=== PATIENT | female | born 2000 | race Caucasian/White ===

== ENCOUNTER 2024-05-16 10:48 | Emergency (ER) | payer OTHER ==
[~2024-05-16] VITALS: Ht 157.5 cm; Wt 64.4 kg
[2024-05-16] MEDS: KETOROLAC 30 MG/ML 1ML VIAL IM ONE (12:25)
[2024-05-16] MEDS: ACETAMINOPHEN 500 MG TAB PO ONE (12:25)
[2024-05-16] MEDS: LIDOCAINE 5% (LIDODERM) PATCH TD ONE (13:00)
[2024-05-16] MEDS: methylPREDNISolone 125MG 2ML VIAL IM ONE (13:13)
[2024-05-16] MEDS ORDERED: METH-1165 PO (13:46)
[2024-05-16 14:21] VITALS: BP 119/68; TEMP 97.8; O2SAT 100
== END 2024-05-16 14:23 | disposition home or self-care (01) ==
LOC: M ED 10:48
DX: M54.16 Radiculopathy, lumbar region (principal)
CPT/HCPCS: 99283; J1885; J2919

== ENCOUNTER 2024-10-26 23:21 | Emergency (ER) | payer OTHER ==
[~2024-10-26] VITALS: Ht 154.9 cm; Wt 61.4 kg
[~2024-10-26 23:21] MED LIST: METH-1165 PO
[2024-10-26] MEDS ORDERED: TRAZ-252 PO (23:36)
[2024-10-27] MEDS: methylPREDNISolone 125MG 2ML VIAL IV ONE (00:48)
[2024-10-27 01:07] LABS: BASO % 0.3 % (0.0-1.0); EOS # 0.3 10^3/uL (0.0-0.5); EOS % 2.9 % (0.0-3.0); HEMATOCRIT 33.2 % (36.0-47.0); HEMOGLOBIN 11.5 g/dl (12.0-15.5); LYMPH # 1.8 10^3/uL (1.5-5.0); LYMPH % 19.7 % (24.0-44.0); MEAN CORPUSCULAR HGB CONC 34.6 g/dl (32.0-36.5); MEAN CORPUSCULAR VOLUME 89.5 fl (80.0-96.0); MONO # 0.5 10^3/uL (0.0-0.8); MONO % 5.8 % (2.0-8.0); NEUTROPHILS # 6.4 10^3/uL (1.5-8.5); NEUTROPHILS % 70.9 % (36.0-66.0); PLATELET COUNT, AUTOMATED 203 10^3/uL (150-450); RED BLOOD COUNT 3.71 10^6/uL (4.00-5.40)
[2024-10-27 01:21] LABS: BLOOD UREA NITROGEN 13 MG/DL (9-23); CALCIUM LEVEL 8.4 MG/DL (8.5-10.1); CARBON DIOXIDE LEVEL 25 MMOL/L (20-31); CHLORIDE LEVEL 105 MMOL/L (98-107); GLOMERULAR FILTRATION RATE > 90.0 (>60); GLUCOSE, FASTING 85 MG/DL (60-100); POTASSIUM SERUM 3.8 MMOL/L (3.5-5.1); SODIUM LEVEL 139 MMOL/L (136-145)
[2024-10-27 02:01] LABS: HCG, SERUM QUALITATIVE NEGATIVE (NEGATIVE)
[2024-10-27] MEDS: diazePAM 10MG/2ML SYRINGE IV ONE (06:20)
[2024-10-27 07:00] VITALS: TEMP 97.8
[2024-10-27 08:00] VITALS: BP 101/58; O2SAT 99
[2024-10-27] MEDS ORDERED: MEDR4PAK PO (08:50)
[2024-10-27] MEDS ORDERED: NAPR-837 PO (08:52)
== END 2024-10-27 09:05 | disposition home or self-care (01) ==
LOC: M ED 23:21
DX: M51.26 Other intervertebral disc displacement, lumbar region (principal); M51.27 Other intervertebral disc displacement, lumbosacral region; Z79.899 Other long term (current) drug therapy; Z79.1 Long term (current) use of non-steroidal anti-inflammatories (NSAID)
CPT/HCPCS: 72131; 72192; 80048; 84703; 85025; 96374; 96375; 99284; J2919; J3360

== ENCOUNTER 2025-04-15 19:09 | Emergency (ER) | payer OTHER ==
[~2025-04-15] VITALS: Ht 154.9 cm; Wt 62.2 kg
[~2025-04-15 19:09] MED LIST changes: +MEDR4PAK PO; +NAPR-837 PO; +TRAZ-252 PO
[2025-04-15 19:52] LABS: BASO # 0.0 10^3/uL (0.0-0.2); BASO % 0.6 % (0.0-1.0); EOS # 0.3 10^3/uL (0.0-0.5); EOS % 3.6 % (0.0-3.0); LYMPH # 2.0 10^3/uL (1.5-5.0); LYMPH % 28.5 % (24.0-44.0); MONO # 0.5 10^3/uL (0.0-0.8); MONO % 7.2 % (2.0-8.0); NEUTROPHILS # 4.2 10^3/uL (1.5-8.5); NEUTROPHILS % 60.0 % (36.0-66.0); PLATELET COUNT, AUTOMATED 210 10^3/uL (150-450)
[2025-04-15 20:15] LABS: HCG, SERUM QUALITATIVE NEGATIVE (NEGATIVE)
[2025-04-15 20:18] LABS: ALT/SGPT 15 U/L (7.0-40); AST/SGOT 19 U/L (<34); CALCIUM LEVEL 8.6 MG/DL (8.5-10.1); CARBON DIOXIDE LEVEL 26 MMOL/L (20-31); CHLORIDE LEVEL 104 MMOL/L (98-107); CK-MB VALUE MASS < 1.0 NG/ML (<3.6); CPK CREATINE PHOSPHOKINASE 92 U/L (34-145); CREATININE FOR GFR 0.81 MG/DL (0.55-1.30); GLOMERULAR FILTRATION RATE > 90.0 (>60); POTASSIUM SERUM 3.9 MMOL/L (3.5-5.1); SODIUM LEVEL 140 MMOL/L (136-145)
[2025-04-15 21:29] LABS: CK-MB VALUE MASS 1.0 NG/ML (<3.6)
[2025-04-15 21:31] LABS: CPK CREATINE PHOSPHOKINASE 84 U/L (34-145); MB/CK RELATIVE INDEX 1.19 (< OR =4)
[2025-04-15] MEDS: IPRATROPIUM 0.5 MG/ALBUTEROL 2.5 MG INH SOL UD 3 ML NEB ONE (21:35)
[2025-04-15 23:30] VITALS: TEMP 98.9; O2SAT 99
[2025-04-15 23:45] VITALS: BP 99/51
== END 2025-04-15 23:50 | disposition home or self-care (01) ==
LOC: M ED 19:09
DX: R07.9 Chest pain, unspecified (principal); Z79.899 Other long term (current) drug therapy